=== PATIENT | female | born 1960 | race Caucasian/White ===

== ENCOUNTER 2024-01-23 14:54 | Outpatient (CLI) | payer OTHER | END 2024-01-23 14:55 | disposition home or self-care (01) | LOC: BICULT 14:54 | PROVIDERS: ATTEND Student in an Organized Health Care Education/Training Program | DX: E05.00 Thyrotoxicosis with diffuse goiter without thyrotoxic crisis or storm (principal) | CPT/HCPCS: 76536 ==